=== PATIENT | female | born 1950 | race Caucasian/White ===

== ENCOUNTER → 2018-07-14 07:43 | Day surgery (SDC) | payer MEDICARE ==
[~2018-07-14 07:43] MED LIST: Acetaminophen IV 1GM/100ML * 1,000 MG/100 ML VIAL IVPB ONE; Buffered Lidocaine 1% SYRIN* 1 ML/SYRINGE INTRADERM ONE; Bupivacaine 0.5% W/EPI SDV* 30 ML VIAL ONE; Chloroprocaine 2%* 20 ML VIAL ONE; Dexamethasone IV* 4 MG/ML 1 ML (4 MG) IV SLOW PU ONE; Dexamethasone IV* 4 MG/ML 1 ML (4 MG) ONE; DiMENhydriNATE IV* 50 MG/ML VIAL IV PUSH PRN; EPINEPHRINE 1 MG/ML 1 ML VIAL ONE; Famotidine IV* 10 MG/ML 2 ML (20 mg) IV ONE; Famotidine IV* 10 MG/ML 2 ML (20 mg) ONE; Ketorolac INJ* 30 MG/ML 1 ML VIAL IV PRN; Lactated Ringers 1000 ML Bag* 1,000 ML IV SCH; Midazolam* 1 MG/ML 2 ML VIAL (2 MG) ONE; Naloxone* 0.4 MG/ML 1 ML VIAL IV PRN; Ondansetron INJ* 2 MG/ML VIAL ONE; ceFAZolin 2 GM in NS PREMIX(*) 2 GM/100 ML BAG IVPB ONE; fentaNYL* 50 MCG/ML 2 ML VIAL (100 MCG VIAL) ONE
[2018-07-14 11:44] VITALS: BP 123/76
--- NOTE | 2018-07-16 08:49 | OP ---
OPERATIVE REPORT: DATE OF OPERATION: 07/14/18 DATE OF : 46 SURGEON: Zurdo Sims MD. HOLIDAY DETECTOR OPERATOR: BIANCA Alonzo. Physician assistant facility manager was required for the length of the procedure for assistance with positioning, ins trumentation, knee manipulation, and closure. ANESTHESIOLOGIST: Zachary Fuentes MD. ANESTHESIA: Spinal anesthesia, local anesthesia with 25 cc of Marcaine 0.5% with epinephrine. PRE-OP DIAGNOSES: 1. Left knee medial meniscus tear. 2. 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 3. Left knee osteoarthritis, mild. POST-OP DIAGNOSES: 1. Left knee medial meniscus tear with displaced flap. 2. Left knee lateral meniscus tear. 3. 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 4. Left knee mild osteoarthritis. 5. Left knee medial plica, enlarged. OPERATIVE PROCEDURES: 1. Left knee arthroscopic partial medial meniscectomy. 2. Left knee arthroscopic partial lateral meniscectomy. 3. Left knee arthroscopic excision of plica. 4. Left knee arthroscopic chondroplasty, trochlear groove medial aspect. ANTIBIOTICS: Ancef 2 g IV. IV FLUIDS: 750 cc crystalloid. TOURNIQUET TIME: 27 minutes at 300 mmHg at the level of the thigh. [id number] TIME: 24 minutes. ARTHROSCOPIC FLUID UTILIZED: Unknown to me. SPECIMEN: None. IMPLANTS: None. COMPLICATIONS: None. ESTIMATED BLOOD LOSS: Minimal. INDICATIONS FOR PROCEDURE: The patient is a 68-year-old woman, active, who has struggled with left k nee pain since the injuries in December 2016 and October 2017. She has continued to have knee pain as wel l as some swelling of the knee. She has been treated by Dr. Romero for quite some time with very co mprehensive nonoperative management including aspiration of Bhatt cyst x2, viscosupplementation, like ly cortisone injection, physical therapy, home exercises. The patient responded insufficiently to th is full spectrum of nonoperative management. MRI revealed evidence of a chronic ACL tear. MRI demon strated what appeared to be a high-grade partial thickness radial tear in the posterior horn. This w as read by myself. I believe radiologist described it as a longitudinal tear. My review immediately preoperatively, the night prior to surgery also demonstrated a possible displaced fragment inferior to the medial meniscus at the junction of the body and posterior horn. The patient had significant s ymptoms laterally, so I thought that she might also have a lateral meniscus tear not showing up on pr eoperative imaging. We discussed that due to age and degenerative changes, she was not an ideal candidate for ACL reconst ruction. I thought that partial meniscectomy surgery might help, but I discussed a 30% chance of imp rovement with this procedure. Definitive surgery for her degenerative changes would involve arthropla sty surgery. The patient opted to proceed forward with surgery. We discussed pros and cons of surger y and risks and potential complications. DESCRIPTION OF PROCEDURE: In preoperative holding, the patient signed a written consent. Operative extremity was marked in preoperative holding. The patient professed a strong preference for spinal a nesthesia and so anesthesiologist decided that spinal anesthesia with little to no sedation would be the anesthesia of choice. The patient was brought back to the operating room. Spinal anesthetic was placed by Dr. Fuentes. The patient was laid supine on operating room table. Tourniquet was placed abou t the proximal left thigh. Left distal thigh was placed in the circumferential thigh hernandez. The le ft lower extremity was prepped and draped. Surgical time-out performed. Esmarch applied and tourniq uet elevated to 300 mmHg. Established anterolateral knee arthroscopy portal using standard technique. No articular cartilage w ere obvious at first in the patellofemoral compartment. The patient had some synovitis present. I b rought an arthroscopic shaver in through an anteromedial portal that I established under direct visua lization. I used this to debride the synovitic tissue anterior to the patellofemoral compartment. Immediately visible was a very significant sheath of medial plica present, quite overgrown, that glen rly rubbed along the medial femoral condyle and the medial aspect of the trochlear groove. I brought in arthroscopic scissors through the anteromedial portal and incised this plica and then shaved up m uch of it with an arthroscopic shaver. Also at this time became visible a grade 3 almost grade 4 lesion in the articular cartilage near the junction of the area of the trochlear groove in the medial femoral condyle and its part in the medial compartment. There was a small area of calcification or white body, similar to the residue left ove r by cortisone injection in part of this. I used an arthroscopic shaver to debride that white residu e about the chondral surface. No significant amount of loose articular cartilage there. I dropped down to the intercondylar notch. I probed the lateral aspect of the notch and there was cl early no proximal ACL present. I next moved to the medial compartment. There was clear complex tearing of the posterior horn of the medial meniscus. I did identify a displaced flap almost in the middle of the posterior horn that wa s displaced inferior to the posterior horn. I retrieved this with an arthroscopic probe and then shav ed it away with an arthroscopic shaver and a meniscal bitter. I debrided that posterior horn back to a stable rim. Fortunately, there was no radial tear, partial or full thickness. As I flexed the knee, it became obvious that there was a long defect in articular cartilage from ante rior to posterior, grade 2 to grade 4. There was no unstable articular cartilage to this lesion, so I did not debride along it after I probed it. I again returned to the lesion about the medial aspect of the trochlear groove and just debrided more of that residue overlying it. I then moved to the lateral compartment. No articular cartilage wear there. There was some fraying about the inner aspect of the meniscus, some minimal tearing that I smoothed out with an arthroscopic shaver. I removed the instruments and fluid from the knee joint. I then closed skin incisions with figure-of -eight in 12 stitches using nylon 3-0 suture. I injected local anesthesia, 25 cc of Marcaine 0.5% wi th epinephrine into the subcutaneous tissues about the skin incisions. Xeroform, 4x4s, ABD, sterile Webril, Irvin bandage from foot to proximal thigh. Tourniquet dropped. Cooling unit placed on the kne e. The patient was awakened, although this did not take much as she was not sedated during the proced ure. The patient was brought to the PACU. DISPOSITION: The patient was discharged home when medially stable. The patient given Percocet as ne eded for pain control and aspirin x2 weeks b.i.d. for DVT prophylaxis. She will start physical thera py immediately. Wean off crutches. Wound care instructions provided. The patient will be seen in 10 to 14 days postoperatively in clinic. I told the patient's family that I was especially happy intra operatively to find a displaced meniscal flap about the posterior horn of the medial meniscus as this can often be a significant pain generator that will improve once it is removed. [id number] #: [id number]
== END | disposition home or self-care (01) ==
LOC: OR 07:43
PROVIDERS: ATTEND Orthopaedic Surgery
DX: S83.232A Complex tear of medial meniscus, current injury, left knee, initial encounter (principal); S83.282A Other tear of lateral meniscus, current injury, left knee, initial encounter; S83.512A Sprain of anterior cruciate ligament of left knee, initial encounter; M67.52 Plica syndrome, left knee; M17.12 Unilateral primary osteoarthritis, left knee; X50.0XXA Overexertion from strenuous movement or load, initial encounter; Y92.89 Other specified places as the place of occurrence of the external cause; E78.5 Hyperlipidemia, unspecified; K21.9 Gastro-esophageal reflux disease without esophagitis; F43.10 Post-traumatic stress disorder, unspecified
CPT/HCPCS: J0690; J1100; J2250; J2400; J2405; J3010